=== PATIENT | female | born 1950 | race Hispanic/Latino ===

== ENCOUNTER 2025-04-24 19:42 | Emergency (ER) | payer MEDICARE ==
[~2025-04-24] VITALS: Ht 165.1 cm; Wt 81.6 kg
[2025-04-24 20:14] VITALS: RESP 20
[2025-04-24 20:34] LABS: BASOPHILS % 0.4 % (0.0-1.0); EOSINOPHILS % 0.2 % (0.0-6.0); HEMATOCRIT 39.6 % (34.2-44.1); HEMOGLOBIN 13.6 g/dL (12.0-16.0); LYMPHOCYTES # (AUTO) 0.6 (1.0-3.2); LYMPHOCYTES % 12.4 % (18.0-39.1); MEAN CORPUSCULAR HEMOGLOBIN 31.8 pg (28-32); MEAN CORPUSCULAR HGB CONC 34.3 g/dL (31-35); MEAN CORPUSCULAR VOLUME 92.5 fL (81-99); MONOCYTES % 19.7 % (4.4-11.3); NEUTROPHILS # (AUTO) 3.3 (2.1-6.9); NEUTROPHILS % 66.9 % (38.7-80.0); PLATELET COUNT 190 x10e3/uL (140-360); RED BLOOD COUNT 4.28 x10e6/uL (3.6-5.1); RED CELL DISTRIBUTION WIDTH 13.2 % (11.7-14.4); WHITE BLOOD COUNT 4.98 x10e3/uL (4.8-10.8)
[2025-04-24] MEDS: SODIUM CHLORIDE 0.9% 1000ML 1,000 ML IV STA (20:38)
[2025-04-24] MEDS: KETOROLAC TROMETHAMINE 30 MG/ML VIAL IV STA (20:38)
[2025-04-24 20:48] LABS: STREPTOCOCCUS GRP A ANTIGEN NEGATIVE (NEGATIVE)
[2025-04-24 20:52] LABS: ALBUMIN 4.1 g/dL (3.5-5.0); ALBUMIN/GLOBULIN RATIO 1.1 (0.8-2.0); ANION GAP 17.9 mmol/L (8-16); BILIRUBIN,TOTAL 0.4 mg/dL (0.2-1.2); CALCIUM 8.9 mg/dL (8.4-10.2); CREATININE, SERUM 1.15 mg/dL (0.57-1.11); POTASSIUM 3.9 mmol/L (3.5-5.1); TOTAL PROTEIN 7.8 g/dL (6.5-8.1)
[2025-04-24 20:53] LABS: INFLUENZA A AG NEGATIVE (NEGATIVE); INFLUENZA B AG NEGATIVE (NEGATIVE)
[2025-04-24 20:55] LABS: CORONAVIRUS COVID-19 AG POSITIVE (NEGATIVE)
[2025-04-24 20:59] LABS: TROPONIN I 0.006 ng/mL (0-0.300)
[2025-04-24] MEDS: ACETAMINOPHEN 325 MG TAB PO STA (21:00)
[2025-04-24 21:28] VITALS: TEMP 99.1
[2025-04-24] MEDS ORDERED: KETOROLAC TROME10 MG PO (21:36)
[2025-04-24] MEDS ORDERED: PAXLOVID 150-11 EAC2 PO (21:36)
[2025-04-24 22:15] VITALS: PULSE 56
[2025-04-24 22:25] VITALS: BP 131/86; PULSE 56; O2SAT 98
== END 2025-04-24 22:25 | disposition home or self-care (01) ==
LOC: ER 19:52
DX: R50.9 Fever, unspecified (principal); U07.1 COVID-19; R05.9 Cough, unspecified; R53.1 Weakness; R53.81 Other malaise; I10 Essential (primary) hypertension; R94.31 Abnormal electrocardiogram [ECG] [EKG]
CPT/HCPCS: 36415; 71045; 80053; 82550; 83518; 83690; 83880; 84484; 85025; 87070; 87428; 93005; 99284; J1885; J7030